=== PATIENT | male | born 1990 | race Two or more races ===

== ENCOUNTER 2023-07-27 23:42 | Emergency (ER) | payer OTHER ==
[~2023-07-27] VITALS: Ht 172.7 cm; Wt 99.1 kg
[2023-07-28] MEDS ORDERED: KETOROLAC TROMETH 60MG/2ML VIAL IM ONE (00:15)
[2023-07-28] MEDS ORDERED: HYDROcodone-ACET 10/325MG TAB PO ONE (00:15)
[2023-07-28 00:29] LABS: Basophils # (auto) 0.1 10 ^3/uL (0-0.2); Basophils % (auto) 0.7 % (0.0-2.0); Eosinophils # (auto) 0.2 10 ^3/uL (0-0.8); Hematocrit 46.2 % (41.0-53.0); Hemoglobin 15.5 g/dL (13.5-17.5); Lymphocytes # (auto) 3.1 10 ^3/uL (0.4-5.4); Lymphocytes % (auto) 32.1 % (10.0-50.0); Mean Corpuscular Hemoglobin 30.2 pg (28.0-32.0); Mean Corpuscular Hgb Conc. 33.6 g/dL (32.0-36.0); Monocytes # (auto) 0.6 10 ^3/uL (0-1.3); Monocytes % (auto) 5.8 % (0.0-12.0); Neutrophils # (auto) 5.7 10 ^3/uL (1.6-8.6); Neutrophils % (auto) 59.4 % (37.0-80.0); Nucleated Red Blood Cells % 0.1 %; Red Blood Cells 5.13 10^6/uL (4.5-5.90); Red Cell Distribution Width 13.3 % (11.8-14.3); White Blood Cell 9.6 10^3/uL (4.4-10.8)
[2023-07-28] MEDS ORDERED: IBU600T PO (00:31)
[2023-07-28 00:38] LABS: Chloride 106 mmol/L (98-107); Potassium 3.7 mmol/L (3.5-5.1); Sodium 139 mmol/L (136-145)
[2023-07-28 00:39] LABS: Anion Gap 7 (5-15); Carbon Dioxide 26 mmol/L (20-30)
[2023-07-28 00:40] LABS: Calcium 9.6 mg/dL (8.7-10.4)
[2023-07-28 00:44] LABS: BUN/Creatinine Ratio 9.4 (10.0-20.0); Blood Urea Nitrogen 9 mg/dL (9-23); Glucose 175 mg/dL (74-106)
[2023-07-28 04:20] LABS: Urine Bacteria NONE SEEN /hpf (None Seen); Urine Blood Negative /uL (Negative); Urine Clarity HAZY (Clear); Urine Color Yellow (Yellow); Urine Mucus FEW (None Seen); Urine Protein, UAD 2+ (Negative); Urine WBC 2 /hpf (0 - 3)
[2023-07-28 04:30] VITALS: PULSE 86; RESP 16; O2SAT 100
[2023-07-28 04:32] LABS: Amphetamine Screen, Urine Neg (NEGATIVE); Barbiturate Scree,Urine Neg (NEGATIVE); Benzodiazephine Screen, Urine Neg (NEGATIVE); Cocaine Screen, Urine Neg (NEGATIVE)
[2023-07-28 04:33] LABS: Cannabinoid Screen, Urine Neg (NEGATIVE); Opiate Scree,Urine Pos (NEGATIVE); Phencyclidine Screen, Urine Neg (NEGATIVE)
[2023-07-28 04:47] LABS: Urine Specific Gravity > 1.050 (1.001-1.035)
[2023-07-28 05:00] VITALS: BP 130/60; PULSE 66; RESP 16; TEMP 97.9; O2SAT 100
== END 2023-07-28 06:18 | disposition home or self-care (01) ==
LOC: ER 23:42
DX: K40.90 Unilateral inguinal hernia, without obstruction or gangrene, not specified as recurrent (principal); R73.9 Hyperglycemia, unspecified; Z79.899 Other long term (current) drug therapy
CPT/HCPCS: 36415; 74176; 80048; 80307; 81001; 85025; 96372; 99285; J1885